=== PATIENT | male | born 1980 | race American Indian/Alaskan Native ===

== ENCOUNTER 2017-07-04 03:07 | Emergency (ER) | payer SELFPAY ==
[2017-07-04 03:19] VITALS: BP 130/64
[2017-07-04] MEDS ORDERED: DUONEB *Not for PRN Use IH ONE (03:20)
== END 2017-07-04 04:00 | disposition left against medical advice (07) ==
LOC: ED 03:07
DX: R06.02 Shortness of breath (principal); Z53.21 Procedure and treatment not carried out due to patient leaving prior to being seen by health care provider